=== PATIENT | female | born 1955 | race American Indian/Alaskan Native ===

== ENCOUNTER 2016-07-02 13:02 | Outpatient (CLI) | payer OTHER ==
--- NOTE | 2016-07-02 14:18 | Mammography Report ---
BILATERAL MAMMOGRAM: FINDINGS: The breasts are almost entirely fat (<25% glandular). No mass, distortion, suspicious calcification, or skin change is seen. There are no significant changes when compared to her prior examination in 2014. CAD was utilized. IMPRESSION: Negative mammogram. There is no mammographic evidence of malignancy. RECOMMENDATION: Follow-up per ACS guidelines. BI-RADS CATEGORY: 1 = Negative ACR BI-RADS MAMMOGRAPHIC CODES: 0 = Needs additional imaging evaluation; 1 = Negative; 2 = Benign; 3 = Probably benign; 4 = Suspicious; 5 = Malignant; 6 = Known biopsy-proven malignancy COMMENT: 1. Dense breast tissue, i.e., adenosis, fibrocystic changes, etc., may obscure an underlying neoplasm. 2. Approximately 10% of cancers are not detected with mammography. 3. A negative mammography report should not delay biopsy if a clinically suspicious mass is present. COMMENT: Patient follow-up letters are generated in [employer].
== END 2016-07-02 13:03 | disposition home or self-care (01) ==
LOC: MAMMO 13:02
PROVIDERS: ATTEND Internal Medicine
DX: Z12.31 Encounter for screening mammogram for malignant neoplasm of breast (principal)
CPT/HCPCS: 77067; G0202

== ENCOUNTER 2017-08-01 10:16 | Outpatient (CLI) | payer OTHER ==
--- NOTE | 2017-08-01 16:40 | Mammography Report ---
BILATERAL DIGITAL SCREENING MAMMOGRAM with CAD: 08/01/17 10:16:00 CLINICAL: Routine screening. COMPARISON: 07/02/16 FINDINGS: There are bilateral scattered areas of fibroglandular density.No mass, architectural distortion or suspicious calcifications. IMPRESSION: No mammographic evidence of malignancy. BI-RADS CATEGORY: 1 -- Negative RECOMMENDATION: Routine mammographic screening in one year. COMMENT: Patient follow-up letters are generated by our [employer] application.
== END 2017-08-01 10:17 | disposition home or self-care (01) ==
LOC: MAMMO 10:16
PROVIDERS: ATTEND Internal Medicine
DX: Z12.31 Encounter for screening mammogram for malignant neoplasm of breast (principal)
CPT/HCPCS: 77067

== ENCOUNTER 2018-04-20 07:19 | Outpatient (CLI) | payer OTHER ==
--- NOTE | 2018-04-20 09:49 | Magnetic Resonance Report ---
MRI OF THE BRAIN WITHOUT CONTRAST: HISTORY: Quadriplegia PROCEDURE: Multiplanar, multisequence MR imaging of the brain without IV contrast was performed. FINDINGS: Mild nonspecific T2 signal abnormalities are identified throughout the periventricular and subcortical white matter of both cerebral hemispheres. This pattern is nonspecific but is most likely related to chronic microvascular ischemic disease. Demyelination could be considered but is thought less likely. The remaining brain parenchyma demonstrate normal signal on all sequences. No evidence for acute ischemia, hemorrhage or mass. No chronic infarct or extra-axial fluid collection. The midline structures are central. The basal cisterns are patent. Normal ventricular size. The orbital cavities and sella turcica demonstrate no abnormality. The visualized paranasal sinuses and mastoid air cells are well aerated. IMPRESSION: Chronic ischemic changes in the white matter. No acute intracranial process.
--- NOTE | 2018-04-20 09:51 | Magnetic Resonance Report ---
MRI OF THE THORACIC SPINE: HISTORY: Quadriplegia. FINDINGS: Multiplanar and multisequence MRI of the thoracic spine is submitted. There is normal height and alignment of the vertebral bodies and posterior elements. Normal bone marrow signal. Mild degenerative disc desiccation and anterior spurring is identified throughout the mid and lower thoracic spine. There is no evidence for disc bulge, protrusion, or herniation. Visualized neural foramen are grossly patent. Visualized portions of the spinal cord are symmetric without signal abnormality. IMPRESSION: Unremarkable MR of the thoracic spine. Minimal thoracic spondylosis.
--- NOTE | 2018-04-20 14:03 | Magnetic Resonance Report ---
MR CERVICAL SPINE WITHOUT CONTRAST HISTORY: Quadriplegia. TECHNIQUE: Axial T2 and T2 gradient. Sagittal T1, T2 and STIR. COMPARISON: None. FINDINGS: The cervical spinal cord is abnormal. There is a focus of severe atrophy or myelomalacia in the cervical spinal cord at the level of C6. There is a small syrinx at this level measuring 7 mm in length. The remainder of the cervical spinal cord is unremarkable. No central canal stenosis is appreciated. Normal height and alignment of the cervical vertebral bodies. Normal bone marrow signal. There is diffuse disc desiccation and narrowing throughout the cervical region. C3-4, C4-5 and C5-6 are most affected. The facet joints are in appropriate relationship. Minimal facet arthropathy is identified C2-3: No significant abnormality. C3-4: Moderate posterior and bilateral uncovertebral spurring is identified. Bilateral neural foraminal narrowing is estimated at 25%. C4-5: Moderate posterior and bilateral uncovertebral spurring is identified. Minimal facet arthropathy. Severe right neural foraminal narrowing is estimated at greater than 75%. Mild left neural foraminal narrowing estimated at 25%. C5-6: Moderate posterior and bilateral uncovertebral spurring. Minimal facet arthropathy. Moderate to severe bilateral neural foraminal narrowing is estimated at 75%. C6-7: No significant abnormality. C7-T1: No significant abnormality. Moderate facet arthropathy. IMPRESSION: There is focal severe atrophy or myelomalacia in the cervical spinal cord at the level of C6. Moderate to severe multilevel degenerative disc disease is identified which is most pronounced at C3-4, C4-5 and C5-6 as outlined above.
== END 2018-04-20 07:20 | disposition home or self-care (01) ==
LOC: MRI 07:19
PROVIDERS: ATTEND Specialist
DX: G82.54 Quadriplegia, C5-C7 incomplete (principal); M48.02 Spinal stenosis, cervical region; M50.31 Other cervical disc degeneration, high cervical region; J45.909 Unspecified asthma, uncomplicated; Z86.2 Personal history of diseases of the blood and blood-forming organs and certain disorders involving the immune mechanism
CPT/HCPCS: 70551; 72141; 72146

== ENCOUNTER 2018-08-03 09:45 | Outpatient (CLI) | payer OTHER ==
--- NOTE | 2018-08-03 11:34 | Mammography Report ---
Screening mammogram: There is an intermediate fibroglandular pattern. Bilateral asymmetries are identified however when compared to exams dating back to 2014 these appear stable. No new findings. CAD used. Impression: Stable exam. Recommendation: Annual mammogram followup. BI-RADS CATEGORY: 2 = Benign ACR BI-RADS MAMMOGRAPHIC CODES: 0 = Needs additional imaging evaluation; 1 = Negative; 2 = Benign; 3 = Probably benign; 4 = Suspicious; 5 = Malignant; 6 = Known biopsy-proven malignancy COMMENT: 1. Dense breast tissue, i.e., adenosis, fibrocystic changes, etc., may obscure an underlying neoplasm. 2. Approximately 10% of cancers are not detected with mammography. 3. A negative mammography report should not delay biopsy if a clinically suspicious mass is present.
== END 2018-08-03 09:46 | disposition home or self-care (01) ==
LOC: MAMMO 09:45
PROVIDERS: ATTEND Physician Assistant Medical
DX: Z12.31 Encounter for screening mammogram for malignant neoplasm of breast (principal); J45.909 Unspecified asthma, uncomplicated
CPT/HCPCS: 77067

== ENCOUNTER 2020-10-30 15:04 | Outpatient (CLI) | payer MEDICARE ==
--- NOTE | 2020-10-30 16:11 | XRay Report ---
Skeletal series-17 views INDICATION: D69.59 OTHER SECONDARY THROMBOCYTOPENIA/ D47.2 MONOCLONAL GAMMO. COMPARISON: None. IMPRESSION: No osseous metastatic disease identified. Degenerative changes throughout the spine, pel vis, hips, and shoulders. Clear lungs. Signer Name: Pal Camargo MD Signed: 10/30/2020 4:07 PM Workstation Name: [id number]
== END 2020-10-30 15:05 | disposition home or self-care (01) ==
LOC: SPVIMAG 15:04
PROVIDERS: ATTEND Internal Medicine Hematology
DX: M47.819 Spondylosis without myelopathy or radiculopathy, site unspecified (principal); M16.0 Bilateral primary osteoarthritis of hip; M19.012 Primary osteoarthritis, left shoulder; M19.011 Primary osteoarthritis, right shoulder; D47.2 Monoclonal gammopathy; D69.59 Other secondary thrombocytopenia
CPT/HCPCS: 77074